=== PATIENT | female | born 1990 | race Caucasian/White ===

== ENCOUNTER 2023-10-20 20:36 | Emergency (ER) | payer BC, SELFPAY ==
[2023-10-20 20:59] VITALS: BP 166/99; PULSE 109; RESP 16; TEMP 38.6; O2SAT 99; BMI 27.4
[2023-10-20 21:37] LABS: Strep A DNA Probe* NOT DETECTED (Not Detectd)
[2023-10-20 21:41] VITALS: RESP 14
[2023-10-20] MEDS: ACETAMINOPHEN 500 MG TABLET 1000 MG PO (21:45)
--- OUTSIDE RECORDS SUMMARY | 2023-10-20 21:58 | XMS_ITS | Clinical Summary ---
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 Role Phone Pcp, No Primary Care Provider Unavailabl e Allergies Active Allergy Reactions Criticality Noted Date Comments Clindamycin Rash Medium 10/04/2017 Penicillins Rash 12/17/2006 Medications No known medications Active Problems No known active problems Immunizations Name Administration Dates Next Due DTP 07/15/1996, 3,1991,1991 ,1991 DTaP 07/15/1996 HIB HbOC (HibTITER) 07/15/1996 Hepatitis A (Peds) 09/22/2007,12/17/2006 Hepatitis B (Peds) 03/06/2001,12/17/2000, 001 Inactivated Polio Vaccine 07/15/1996,05/12/1992, 1991,1991 MMR 10/06/2006,10/07/2003,07/15/1996 ,05/12/1992 Meningococcal Vaccine (Menactra) 12/17/2006 Meningococcal Vaccine (Menomune) 12/17/2006 Oral Polio Vaccine 07/15/1996,05/12/1992, 992,1991 Td (Age >=7 Years) 10/07/2003 Tdap 08/03/2015 Varicella Vaccine 12/17/2006,12/17/2000 Family History Medical History Relation Name Comments Hypertension Father Vin Cancer Maternal Grandfather Cancer Maternal Grandmother Cancer Paternal Grandfather Cancer Paternal Grandmother Relation Name Status Comments Father Vin Alive Maternal Grandfather Maternal Grandmother Mother Kira Alive Paternal Grandfather Paternal Grandmother Sister Bee Alive Social History Tobacco Use Types Packs/Day Years Used Date Smoking Tobacco: Passive Smo ke Exposure - Never Smoker Smokeless Tobacco: Never Alcohol Use Standard Drinks/Week Comments No 0 (1 standard drink = 0.6 oz pur e alcohol) Sex and Gender Information Value Date Recorded Sex Assigned at Not on file Gender Identity Not on file Sexual Orientation Not on file Obstetrics History Last Filed Vital Signs Vital Sign Reading Time Taken Comments Blood Pressure 128/80 09/01/2018 10:55 AM CDT Pulse 80 09/01/2018 10:55 AM CDT Temperature 37.4 ??C (99.4 ??F) 05/19/2018 3:52 PM CS T Respiratory Rate 16 09/01/2018 10:55 AM CDT Oxygen Saturation 99% 10/04/2017 8:48 AM CDT Inhaled Oxygen Concentration - - Weight 68.9 kg (152 lb) 05/10/2017 10:[address] [facility] Height 154.9 cm (5' 1) 08/31/2016 11:46 AM CDT Body Mass Index 28.72 08/31/2016 11:46 AM CDT Plan of Treatment Health Maintenance Due Date Last Done Comments HIV for age 15-65 2006 Hepatitis C screening for ag e 18-79 2009 Pap test for age 21-65 01/31/2012 BMI (ht and wt on same day) for age 18+ 08/31/2017 08/31/2016, 08/03/2015 Depression screening for age 12+ 08/31/2017 08/31/2016 COVID-19 vaccine series (2022- season) 2022 Influenza for age 9-49 11/24/2023 Tetanus booster 08/02/2025 08/03/2015, 10/07/2003 Tdap Completed 08/03/2015 Pneumococcal series for age 6-64 Aged Out No longer eligible b ased on patient's age to complete this topic 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 PCP - General 08/03/15
--- NOTE | 2023-10-20 22:42 | ED.GENADULT ---
HPI - General Adult General Date Seen: 10/20/23 Chief complaint: Sore Throat Stated complaint: swollen tonsils Time Seen by Provider: 10/20/23 21:29 Source: patient Mode of arrival: ambulatory Limitations: no limitations History of Present Illness HPI narrative: Patient presents here with the sore throat, white stuff on her tonsils, and headache since last night. She is not really taking anything for this. Immunizations are full and up-to-date as far she knows. Denies a fever it was a bit of a shock to her that her temperature was elevated here. She does not have a cough, no diarrhea no nausea vomiting, and no rashes. History of strep as youngster. But not recently. 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 Treatments prior to arrival: none Related Data Home Medications ?Medication ?Instructions ?Recorded ?Confirmed No Known Home Medications 10/20/23 10/20/23 Allergies Allergy/AdvReac Type Severity Reaction Status Date / Time Penicillins Allergy Intermediate Hives Verified 10/20/23 21:05 Review of Systems Status of ROS: Reports: 10 or more systems reviewed and unremarkable except as noted in History and below PFSH PFS Social History Second hand tobacco smoke exposure: No Exam Narrative: Exam Narrative: On examination she is in no apparent distress she has normal voice speaking normally are pupils equal round reactive to light there is no scleral icterus redness or TMs are normal no lymphadenopathy anterior posterior chains but her tonsils both her redness red, she has good room between her tonsils however greater than 3-4 cm. In the do not encroach on her uvula. There is white exudates on there. No trismus, mouth opening was normal no neck pain, chest is clear bilaterally with no wheezing crackles noted heart sounds are normal, abdomen is soft there is no guarding no organomegaly or splenomegaly noted bowel sounds are normal she moves all extremities independently all with no rashes on her trunk, or on her palms. Her strep test is negative. Const: Vital Signs, click to edit/add: Vital Signs - 24 hr 10/20/23 20:59 10/20/23 21:41 Temperature 101.5 F H Pulse Rate [Left P ulse Oximeter] 109 H Respiratory Rate 16 14 Blood Pressure [Ri ght Upper Arm] 166/99 H Pulse Oximetry 99 Oxygen Delivery Me thod Room Air Documenting provider has reviewed patient's vital signs: yes Course Vital Signs Vital signs: Initial Vital Signs Temperature 101.5 F H 10/20/23 20:59 Temperature Source Temporal Artery Scan 10/20/23 20:59 Pulse Rate 109 H 10/20/23 20:59 Pulse Rhythm Regular 10/20/23 20:59 Respiratory Rate 16 10/20/23 20:59 Blood Pressure 166/99 H 10/20/23 20:59 Blood Pressure Mean 121 H 10/20/23 20:59 Blood Pressure Position Sitting 10/20/23 20:59 Pulse Oximetry 99 10/20/23 20:59 Oxygen Delivery Method Room Air 10/20/23 20:59 Vital Signs Temperature 101.5 F H 10/20/23 20:59 Pulse Rate 109 H 10/20/23 20:59 Respiratory Rate 16 10/20/23 20:59 Blood Pressure 166/99 H 10/20/23 20:59 Pulse Oximetry 99 10/20/23 20:59 Oxygen Delivery Method Room Air 10/20/23 20:59 Temperature 101.5 F H 10/20/23 20:59 Pulse Rate 109 H 10/20/23 20:59 Respiratory Rate 14 10/20/23 21:41 Blood Pressure 166/99 H 10/20/23 20:59 Pulse Oximetry 99 10/20/23 20:59 Oxygen Delivery Method Room Air 10/20/23 20:59 Medications Administered Medications: Discontinued Medications Generic Name Dose Route Start Last Admin Trade Name Maritoq PRN Reason Stop Dose Admin Acetaminophen 1,000 mg 10/20/23 21:40 10/20/23 21:45 Acetaminophen 500 Mg Tablet PO 10/20/23 21:41 1,000 mg ONCE ONE Administration Medical Decision Making MDM Narrative Medical decision making narrative: I do believe think she has tonsillitis I do not think she has peritonsillar abscess, retropharyngeal abscess, or worsening. I think this is likely viral from what I see common a course of prednisone along with good fever control would be very helpful here. We went over warning signs when she re-presented, she was very comfortable with this. Lab Data Lab results reviewed: Yes I reviewed the patient's lab results Labs: Lab Results 10/20/23 Range/Units 21:05 Group A Strep DNA NOT DETECTED (Not Detectd) Discharge Plan Discharge Clinical Impression: Acute tonsillitis, unspecified Patient Disposition: Home, Self-Care Condition: Stable Instructions: Tonsillitis (ED) Additional Instructions: Home, rest, use of medications as directed. Recommend prednisone along with Tylenol. Ice also follow-up with can swallow or unilateral swelling. I suspect this however is viral given what I see Activity Level: Light activity Prescriptions: No Action No Known Home Medications Stand Alone Forms: [employer] Info Instructions
== END 2023-10-20 21:58 | disposition home or self-care (01) ==
PROVIDERS: Emergency Provider Family Medicine
DX: J03.90 Acute tonsillitis, unspecified (principal)
CPT/HCPCS: 87651; 99282; 99283; A9270